=== PATIENT | male | born 1985 | race Two or more races ===

== ENCOUNTER 2018-07-21 10:07 | Emergency (ER) | payer MEDICAID ==
[~2018-07-21] VITALS: Ht 170.2 cm; Wt 93.0 kg
[2018-07-21 10:41] LABS: Basophils # (auto) 0 uL; Eosinophils # (auto) 0.3 uL; Platelet Count (auto) 327 10^3/uL (140-450); Red Cell Distribution Width 12.7 % (11.8-14.3)
[2018-07-21 10:42] LABS: Basophils % (auto) 0.5 % (0.0-2.0); Hematocrit 55.9 % (41.0-53.0); Hemoglobin 18.9 g/dL (13.5-17.5); Lymphocytes # (auto) 2.5 uL; Lymphocytes % (auto) 33.5 % (10.0-50.0); Mean Corpuscular Hemoglobin 31.5 pg (28.0-32.0); Mean Corpuscular Hgb Conc. 33.9 g/dL (32.0-36.0); Monocytes # (auto) 0.5 uL; Red Blood Cells 6.01 10^6/uL (4.5-5.90); White Blood Cell 7.3 10^3/uL (4.4-10.8)
[2018-07-21] MEDS ORDERED: SODIUM CHLORIDE 0.9% 1,000 ML IV ONE (10:45)
[2018-07-21] MEDS ORDERED: LORazepam 2MG/ML-1ML VIAL IV ONE (10:45)
[2018-07-21 11:24] LABS: Albumin 4.4 g/dL (3.4-5.0); Anion Gap 6 (5-15); Blood Alcohol < 3.0 mg/dL (0-5); Blood Urea Nitrogen 10 mg/dL (7-18); Carbon Dioxide 29 mmol/L (21-32); Chloride 100 mmol/L (98-107); Glucose 95 mg/dL (74-106); Potassium 3.8 mmol/L (3.5-5.1); Sodium 135 mmol/L (136-145)
[2018-07-21 11:27] LABS: Alanine Aminotransferase 43 U/L (16-61); Alcohol, Urine < 3.0 mg/dL (0-5); Alkaline Phosphatase 87 U/L (45-117); Amphetamine Screen, Urine POSITIVE (NEGATIVE); Aspartate Aminotransferase 25 U/L (15-37); BUN/Creatinine Ratio 8.8; Barbiturate Scree,Urine NEGATIVE (NEGATIVE); Benzodiazephine Screen, Urine NEGATIVE (NEGATIVE); Bilirubin, Total 1.4 mg/dL (0.2-1.0); Cannabinoid Screen, Urine NEGATIVE (NEGATIVE); Cocaine Screen, Urine NEGATIVE (NEGATIVE); GFR African American 96 mL/min; GFR Non-African American 79 mL/min; Opiate Scree,Urine NEGATIVE (NEGATIVE); Phencyclidine Screen, Urine NEGATIVE (NEGATIVE)
[2018-07-21] MEDS ORDERED: THIAMINE INJ 100 MG, MULTIPLE VITAMIN 10 ML, FOLIC ACID 1 MG, MAGNESIUM SULF SDV 50% 8 ... IV SCH ×5 (12:00)
[2018-07-21 13:33] LABS: Urine Bacteria NONE SEEN /hpf (None Seen); Urine Blood Negative /uL (Negative); Urine Mucus FEW (None Seen); Urine Specific Gravity 1.018 (1.001-1.035); Urine WBC 1 /hpf (0 - 3)
[2018-07-21 15:00] VITALS: BP 130/62
== END 2018-07-21 15:33 | disposition home or self-care (01) ==
LOC: ER 10:07
DX: F15.93 Other stimulant use, unspecified with withdrawal (principal); F10.129 Alcohol abuse with intoxication, unspecified; F43.22 Adjustment disorder with anxiety; F17.210 Nicotine dependence, cigarettes, uncomplicated; Y90.9 Presence of alcohol in blood, level not specified
CPT/HCPCS: 36415; 71046; 80053; 80307; 80320; 81001; 83735; 84443; 85025; 93005; 96365; 96366; 96375; 99284; J2060; J3411; J3475; J7030

== ENCOUNTER 2020-11-14 02:31 | Emergency (ER) | payer MEDICAID ==
[~2020-11-14] VITALS: Ht 177.8 cm; Wt 93.0 kg
[2020-11-14 02:52] VITALS: BP 138/92
== END 2020-11-14 03:40 | disposition left against medical advice (07) ==
LOC: ER 02:31
DX: M25.561 Pain in right knee (principal); Z53.21 Procedure and treatment not carried out due to patient leaving prior to being seen by health care provider

== ENCOUNTER 2025-02-15 09:46 | Emergency (ER) | payer MEDICAID, OTHER ==
[~2025-02-15] VITALS: Ht 175.3 cm; Wt 91.2 kg
[2025-02-15 09:55] VITALS: BP 147/100; PULSE 103; RESP 14; TEMP 97.8; O2SAT 96
--- NOTE | 2025-02-15 10:12 | ED.PDOC ---
Musculoskeletal HPI Comments 39 year old male presents to the ED with a chief complaint of LT 4th digit pain onset 2 days. Patient states he was jumping a fence, ring got caught and got stuck into Lt 4th digit. Patient is currently experiencing pain, swelling and erythema. Denies PMHx as well as fevers, chills, nausea, vomiting, diarrhea, abdominal pain, chest pain, shortness of breath. No other symptoms or modifying factors present at this time. Chief Complaint: Upper Extremity Time Seen by MD: 10:00 Primary Care Provider: NONE Reviewed Notes: Medications, Allergies Allergies: Coded Allergies: NO KNOWN ALLERGIES (Unverified , 06/04/11) Information Source: Patient Mode of Arrival: Ambulatory Location: Left Extremity Location: Finger 4 Timing: Days Prehospital treatment: None Severity: Moderate Able to Move Extremity: Yes Pain: Moderate Mechanism: Other Onset of Symptoms: After Trauma Symptoms: Swelling, Pain, Erythema DVT Risk Factors: NONE Last Tetanus: UTD Associated signs and symptoms: Other (LT 4th digit pain) Past Medical History PAST MEDICAL HISTORY: Denies Surgical History: Denies all surgeries Social History Smoker: Cigarettes, Greater Than 1 Pack/Day Alcohol: Heavy Drugs: Methamphetamine Lives In: Home Constitutional: denies: chills, diaphoresis, fatigue, fever, malaise, sweats, weakness, others EENTM: denies: blurred vision, double vision, ear bleeding, ear discharge, ear drainage, ear pain, ear ringing, eye pain, eye redness, hearing loss, mouth pain, mouth swelling, nasal discharge, nose bleeding, nose congestion, nose pain, photophobia, tearing, throat pain, throat swelling, voice changes, others Respiratory: denies: cough, hemoptysis, orthopnea, SOB at rest, shortness of breath, SOB with excertion, stridor, wheezing, others Cardiovascular: denies: chest pain, dizzy spells, diaphoresis, Dyspnea on exertion, edema, irregular heart beat, left arm pain, lightheadedness, palpitations, PND, syncope, others Gastrointestinal: denies: abdomen distended, abdominal pain, blood streaked bowels, constipated, diarrhea, dysphagia, difficulty swallowing, hematemesis, melena, nausea, poor appetite, poor fluid intake, rectal bleeding, rectal pain, vomiting, others Genitourinary: denies: burning, dysuria, flank pain, frequency, hematuria, incontinence, penile discharge, penile sore, pain, testicle pain, testicle swelling, urgency, others Musculoskeletal: reports: others (LT 4th digit pain); denies: back pain, gout, joint pain, joint swelling, muscle pain, muscle stiffness, neck pain Integumetry: denies: bruises, change in color, change in hair/nails, dryness, laceration, lesions, lumps, rash, wounds, others Allergic/Immunocompromised: denies: Difficulty Healing, Frequent Infections, Hives, Itching, others Hematologic/Lymphatic: denies: anemia, blood clots, easy bleeding, easy bruising, swollen glands, others Endocrine: denies: excessive hunger, excessive sweating, excessive thirst, excessive urination, flushing, intolerance to cold, intolerance to heat, unexplained weight gain, unexplained weight loss, others Psychiatric: denies: anxiety, bipolar disorder, depression, hopeless, panic disorder, schizophrenia, sleepless, suicidal, others All Other Systems: Reviewed and Negative Physical Exam General Appearance: Moderate Distress, Normal HEENT: Normal ENT Inspection, Pharynx Normal, TMs Normal Neck: Full Range of Motion, Non-Tender, Normal, Normal Inspection Respiratory: Chest Non-Tender, Lungs Clear, No Accessory Muscle Use, No Respiratory Distress, Normal Breath Sounds Cardiovascular: No Edema, No JVD, No Murmur, No Gallop, Normal Peripheral Pulses, Regular Rate/Rhythm Breast Exam: Deferred Gastrointestinal: No Organomegaly, Non Tender, No Pulsatile Mass, Normal Bowel Sounds, Soft Genitalia: Deferred Pelvic: Deferred Rectal: Deferred Extremities: No calf tenderness, Normal capillary refill, Normal range of motion, Non-tender, No pedal edema, Tender (Left ring finger) Musculoskeletal : Apperance: Normal Neurologic: Alert, book mender II-XII nml as Tested, No Motor Deficits, Normal Affect, Normal Mood, No Sensory Deficits Cerebellar Function: Normal Reflexes: Normal Skin: Dry, Normal Color, Warm Peripheral Pulses: 3+ Radial (R), 3+ Radial (L) Lymphatic: No Adenopathy Was a procedure done? Was a procedure done?: No Differential Diagnosis EXT Differential Diagnosis: Sprain, Strain X-Ray, Labs, Meds, VS Vital Signs Date Time Temp Pulse Resp B/P (MAP) Pulse Ox O2 Delivery O2 Flow Rate FiO2 02/15/25 09:55 97.8 103 14 147/100 (116) 96 97.8 02/15/25 09:55 97.8 103 14 147/100 (116) [address] [address] Ph: [phone] DIAGNOSTIC IMAGING Diagnostic Imaging Report : [id number] Signed PATIENT: FILOMENA RAJPUT ACCT: [id number] UNIT: [id number] : 1985 LOC: ER ROOM / BED: / AGE / SEX: 39 / M ADM STATUS: REG ER SERVICE 1005 ORDERING PHYSICIAN: WANG PAREDES MD PROCEDURE(s): LHAN2 - L HAND 2V XRAY REASON: foregnbody ORDER NUMBER(s): [id number], ACCESSION NUMBER(s): [id number] CLINICAL INDICATION: foregnbody TECHNIQUE: XY L HAND 2V XRAY Comparison: None FINDINGS/IMPRESSION: : There is no evidence of acute fracture or dislocation. Soft tissues are unremarkable. Circular metallic density at the 4th d IP. ATED BY: VETO DOUGLAS MD DICTATED DATE/TIME: 02/15/25 1028 SIGNED BY: VETO DOUGLAS MD SIGNED DATE/TIME: 02/15/25 1028 CC: Patient alert pain Has a ring stuck in the distal 4th digit. Vitals stable. Answering all questions. History not consistent. Does not want any local anesthesia. Ringing needs to be cut before pulling out of the soft tissue. X-ray of the hand does not show any fracture. Patient left without telling anyone. Contact to see if he can come back. Time of 1ST Reevaluation: 10:30 Reevaluation 1ST: Unchanged Patient Education/Counseling: Diagnosis, Treatment, Prognosis Family Education/Counseling: No Family Present Departure 1 Departure Time of Disposition: 12:08 Impression: Primary Impression: Foreign body Disposition: LEFT AWOL/ELOPED Condition: Good Critical Care Note Critical Care Time?: No Stability Stability form required: No I personally scribed for WANG PAREDES MD ([email or web address]) on 02/15/25 at 10:12. Electronically submitted by Hillary Pruett ([email or web address]). I personally scribed for WANG PAREDES MD ([email or web address]) on 02/15/25 at 10:21. Electronically submitted by Hillary Pruett ([email or web address]). I personally scribed for WANG PAREDES MD ([email or web address]) on 02/15/25 at 10:34. Electronically submitted by Hillary Pruett ([email or web address]). WANG PAREDES MD Feb 15, 2025 10:12
[2025-02-15] MEDS ORDERED: LIDOCAINE 1% HCL (LOCAL ANESTH.) INJ 20ML MDV ONE (10:27)
--- NOTE | 2025-02-15 10:30 | DVH ---
CLINICAL INDICATION: foregnbody TECHNIQUE: XY L HAND 2V XRAY Comparison: None FINDINGS/IMPRESSION: : There is no evidence of acute fracture or dislocation. Soft tissues are unremarkable. Circular metallic density at the 4th d IP.
== END 2025-02-15 12:02 | disposition left against medical advice (07) ==
LOC: ER 09:46
DX: S60.455A Superficial foreign body of left ring finger, initial encounter (principal); F17.210 Nicotine dependence, cigarettes, uncomplicated; F10.10 Alcohol abuse, uncomplicated; F19.90 Other psychoactive substance use, unspecified, uncomplicated; Y30.XXXA Falling, jumping or pushed from a high place, undetermined intent, initial encounter; Y93.89 Activity, other specified; Y92.89 Other specified places as the place of occurrence of the external cause; Y99.8 Other external cause status; Y90.9 Presence of alcohol in blood, level not specified
CPT/HCPCS: 73120; 99283; J2003